=== PATIENT | male | born 1980 | race American Indian/Alaskan Native ===

== ENCOUNTER 2019-04-05 16:36 | Emergency (ER) | payer SELFPAY ==
[2019-04-05 17:07] VITALS: BP 136/66
--- NOTE | 2019-04-05 17:11 | Event Note ---
ED Screening Note Date of service: 04/05/19 Time: 17:04 ED Screening Note: This is a 38 y.o. M. that presents to the ER with penile discharge intermittently for 3 months. Patient seen by PCP and emergency room and treated with antibiotics 3 times. Patient states he continue to have swelling and drainage to rectal area that will not heal. This initial assessment/diagnostic orders/clinical plan/treatment(s) is/are subject to change based on patients health status, clinical progression and re- assessment by fellow clinical providers in the ED. Further treatment and workup at subsequent clinical providers discretion. Patient/guardian urged not to elope from the ED as their condition may be serious if not clinically assessed and managed. Initial orders include:
--- NOTE | 2019-04-05 18:10 | Emergency Department Report ---
ED Male HPI - General Chief complaint: Urogenital-Male Stated complaint: STD CHECK Time Seen by Provider: 04/05/19 17:04 Source: patient Mode of arrival: Ambulatory Limitations: No Limitations - History of Present Illness Initial comments: Patient is a 38-year-old male who presents to the emergency room with complaints of anal discharge intermittently for the last 3 months. He states he was seen at [facility] emergency room 3 months ago and diagnosed with chlamydia and given azithromycin at that time. Sates he went to his infectious disease doctor a pproximately a month ago and tested positive for chlamydia and Trichomonas and received a week of doxycycline at that time. He states he did not receive treatment for Trichomonas. The patient has a past medical history of HIV and HSV and takes a daily suppressive therapy for HSV and takes antivirals for his HIV. He states he has also been to a GI doctor and had a colonoscopy performed and has been on suppositories for the last month. states he has another appointment with GI on Monday (04/08/19). pt does not report any fever, chills, nausea, vomiting, diarrhea, abdominal pain, testicular pain, testicular edema, penile pain, or penile discharge. - Related Data Previous Rx's Medication Instructions Recorded Last Taken Type Ondansetron [Zofran Odt] 4 mg PO Q6H PRN #8 tab.rapdis 06/17/14 Unknown Rx Oxycodone HCl/Acetaminophen 1 each PO Q4-6H PRN #20 tablet 06/17/14 Unknown Rx [Percocet 10-325 mg] Azithromycin 2 gm PO ONCE #4 tablet 01/19/15 Unknown Rx DOXYCYCLINE Hyclate [Vibramycin 100 mg PO BID #14 capsule 01/19/15 Unknown Rx CAP] Hydrocortisone [Anusol-Hc 2.5% TOP 1 applic RC BID #1 cream..g. 04/05/19 Unknown Rx CREAM] levoFLOXacin [Levaquin TAB] 500 mg PO QDAY 7 Days #7 tablet 04/05/19 Unknown Rx metroNIDAZOLE [Flagyl TAB] 2 g PO ONCE #4 tab 04/05/19 Unknown Rx Allergies Allergy/AdvReac Type Severity Reaction Status Date / Time No Known Allergies Allergy Verified 04/05/19 17:04 ED Review of Systems ROS: Stated complaint: STD CHECK Other details as noted in HPI Comment: All other systems reviewed and negative ED Past Medical Hx - Past Medical History Previous Medical History?: Yes Hx HIV: Yes Additional medical history: Lymphoma 2010- remission - Surgical History Past Surgical History?: Yes Additional Surgical History: Biopsy. - Social History Smoking Status: Never Smoker Substance Use Type: None - Medications Home Medications: Home Medications Medication Instructions Recorded Confirmed Last Taken Type Ondansetron [Zofran Odt] 4 mg PO Q6H PRN #8 tab.rapdis 06/17/14 Unknown Rx Oxycodone HCl/Acetaminophen 1 each PO Q4-6H PRN #20 tablet 06/17/14 Unknown Rx [Percocet 10-325 mg] Azithromycin 2 gm PO ONCE #4 tablet 01/19/15 Unknown Rx DOXYCYCLINE Hyclate [Vibramycin 100 mg PO BID #14 capsule 01/19/15 Unknown Rx CAP] Hydrocortisone [Anusol-Hc 2.5% TOP 1 applic RC BID #1 cream..g. 04/05/19 Unknown Rx CREAM] levoFLOXacin [Levaquin TAB] 500 mg PO QDAY 7 Days #7 tablet 04/05/19 Unknown Rx metroNIDAZOLE [Flagyl TAB] 2 g PO ONCE #4 tab 04/05/19 Unknown Rx ED Physical Exam - General Limitations: No Limitations General appearance: alert, in no apparent distress - Head Head exam: Present: atraumatic, normocephalic - Eye Eye exam: Present: normal appearance - ENT ENT exam: Present: mucous membranes moist - Rectal Rectal exam: Present: normal rectal tone, hemorrhoids (small non thrombosed external hemorrhoid at the 3 oclock position), other (small ulceration at the 1 oclock position, yellow discharge present at the anal opening, driftman: yenny shah). Absent: bloody stool, mass - Neurological Exam Neurological exam: Present: alert, oriented X3 - Psychiatric Psychiatric exam: Present: normal affect, normal mood - Skin Skin exam: Present: warm, dry, intact ED Course Vital Signs 04/05/19 17:04 Temperature 98 F Pulse Rate 71 Respiratory 16 Rate Blood Pressure 136/66 O2 Sat by Pulse 100 Oximetry ED Medical Decision Making - Medical Decision Making Patient is a 38-year-old male who presents to the emergency room with complaints of anal discharge intermittently for the last 3 months. He states he was seen at [facility] emergency room 3 months ago and diagnosed with chlamydia and given azithromycin at that time. Sates he went to his infectious disease doctor approximately a month ago and tested positive for chlamydia and Trichomonas and received a week of doxycycline at that time. He states he did not receive treatment for Trichomonas. The patient has a past medical history of HIV and HSV and takes a daily suppressive therapy for HSV and takes antivirals for his HIV. He states he has also been to a GI doctor and had a colonoscopy performed and has been on suppositories for the last month. states he has another appointment with GI on Monday (04/08/19). pt does not report any fever, chills, nausea, vomiting, diarrhea, abdominal pain, testicular pain, testicular edema, penile pain, or penile discharge. VSS. on exam: small non thrombosed external hemorrhoid at the 3 oclock position, small ulceration at the 1 oclock position, yellow discharge present at the anal opening, driftman: yenny shah. pt swabbed rectally for G/C and sent to the lab. pt given prescription for flagyl and levaquin. also given anusol for external hemorrhoid. used levaquin due to possibly resistant chlamydia as patient has already been on azithromycin and doxycycline and continued to test positive per pt. discussed risks and benefits of medications with pt. discussed tendon rupture, discussed not to exercise, run, or engage in sports, pt verbalized understanding and would like to continue with medication. advised pt to please use medication as prescribed. please abstain from sexual intercourse for 2 weeks. have any partner tested and treated as well. please avoid exercise, running, sports for three weeks after medication due to potential for tendon rupture as discussed. please follow up with your infectious disease doctor and your GI doctor in the next 2-3 days. It is important you follow up for further testing. return to the emergency room for any new or worsening symptoms. - Differential Diagnosis STD, ulceration, fissure, hemorrhoid Critical care attestation.: If time is entered above; I have spent that time in minutes in the direct care of this critically ill patient, excluding procedure time. ED Disposition Clinical Impression: Anal discharge, External hemorrhoid, Anal ulceration Disposition: TO HOME OR SELFCARE Is pt being admited?: No Does the pt Need Aspirin: No Condition: Stable Instructions: Hemorrhoids (ED), Sexually Transmitted Diseases (ED), Safe Sex (ED) Additional Instructions: please use medication as prescribed. please abstain from sexual intercourse for 2 weeks. have any partner tested and treated as well. please avoid exercise, running, sports for three weeks after medication due to potential for tendon rupture as discussed. please follow up with your infectious disease doctor and your GI doctor in the next 2-3 days. It is important you follow up for further testing. return to the emergency room for any new or worsening symptoms. Prescriptions: Hydrocortisone [Anusol-Hc 2.5% TOP CREAM] 1 applic RC BID #1 cream..g. metroNIDAZOLE [Flagyl TAB] 2 g PO ONCE #4 tab levoFLOXacin [Levaquin TAB] 500 mg PO QDAY 7 Days #7 tablet Referrals: your, GI doctor [Other] - 2-3 Days your, infectious disease doctor [Other] - 2-3 Days Time of Disposition: 18:19 Print Language: [id number]
== END 2019-04-05 18:40 | disposition home or self-care (01) ==
LOC: ED 16:36
DX: K62.5 Hemorrhage of anus and rectum (principal); K62.6 Ulcer of anus and rectum; Z21 Asymptomatic human immunodeficiency virus [HIV] infection status; Z79.899 Other long term (current) drug therapy
CPT/HCPCS: 87591; 99282